=== PATIENT | female | born 1985 | race Caucasian/White ===

== ENCOUNTER 2016-09-22 14:15 | Emergency (ER) | payer BC ==
[2016-09-22 15:12] VITALS: BP 115/82
[2016-09-22] MEDS ORDERED: Fluorescein Sodium TOPICAL* 1 MG TEST ONE (15:23)
[2016-09-22] MEDS ORDERED: BSS OPTH.SOL* BTL ONE (15:24)
--- NOTE | 2016-09-22 15:32 | UC ---
Eye Complaint HPI - HPI Summary HPI Summary: Woke with L eye itchy and red. Used new mascara and makeup remover yesterday, had eyelash in L eye afterward which she had to remove. Denies FB sensation or photophobia. Has young children ages 1-11 at home. - History of Current Complaint Chief Complaint: UC Stated Complaint: RED DRY EYE Time Seen by Provider: 09/22/16 15:12 Hx Obtained From: Patient Hx Last Menstrual Period: current ?: No Onset/Duration: Sudden Onset Timing: Constant Severity Initially: Mild Severity Currently: Mild Location of Injury: Conjunctiva Character: Dull Alleviating Factor(s): Nothing Associated Signs And Symptoms: Positive: Negative - Risk Factors Penetrating Injury Risk Factor: Negative Globe Rupture Risk Factors: Negative - Allergies/Home Medications Allergies/Adverse Reactions: Allergies Allergy/AdvReac Type Severity Reaction Status Date / Time Amoxicillin Allergy Severe Hives Verified 09/22/16 15:03 Dominguez Allergy Severe THROAT Verified 09/22/16 15:03 SWELLING Codeine Allergy Severe Rash Verified 09/22/16 15:03 Erythromycin Allergy Severe Rash Verified 09/22/16 15:03 Latex Allergy Severe Rash Verified 09/22/16 15:03 Red Dye Allergy Severe Rash Verified 09/22/16 15:03 Sulfa Drugs Allergy Severe VOMITING, Verified 09/22/16 15:03 RASH ARTIFICIAL STRAWBERRY Allergy Severe Rash Uncoded 09/22/16 15:03 Home Medications: Home Medications Hydroxychloroquine TAB* [Plaquenil TAB*] 200 mg PO DAILY 09/22/16 [History Confirmed 09/22/16] PMH/Surg Hx/FS Hx/Imm Hx Previously Healthy: Yes Endocrine History Of: Denies: Diabetes, Thyroid Disease Cardiovascular History Of: Denies: Cardiac Disorders, Hypertension Respiratory History Of: Denies: COPD, Asthma GI/ History Of: Denies: Ulcer - Surgical History Surgical History: Yes Surgery Procedure, Year, and Place: OVARIAN CYSTS REMOVED X2 - Family History Known Family History: Positive: Hypertension - Social History Occupation: Employed Full-time Lives: With Family Alcohol Use: Rare Substance Use Type: None Smoking Status (MU): Never Smoked Tobacco - Immunization History Most Recent Influenza Vaccination: none Review of Systems Constitutional: Negative Skin: Negative Eyes: Eye Redness ENT: Negative Respiratory: Negative Cardiovascular: Negative Gastrointestinal: Negative Genitourinary: Negative Motor: Negative Neurovascular: Negative Musculoskeletal: Negative Neurological: Negative Psychological: Negative All Other Systems Reviewed And Are Negative: Yes Physical Exam Triage Information Reviewed: Yes Appearance: Well-Appearing, No Pain Distress, Well-Nourished Vital Signs: Initial Vital Signs Temp 98.0 F 09/22/16 15:05 Pulse 90 09/22/16 15:05 Resp 16 09/22/16 15:05 BP 115/82 09/22/16 15:05 Pulse Ox 97 09/22/16 15:05 Eye Exam: Other - PERRL Eyes: Positive: Conjunctiva Inflamed - L, Other: - Fluorescein dye test negative for uptake ENT Exam: Normal ENT: Positive: Normal ENT inspection, Hearing grossly normal, Pharynx normal, TMs normal Dental Exam: Normal Neck exam: Normal Neck: Positive: Supple, Nontender, No Lymphadenopathy Respiratory Exam: Normal Respiratory: Positive: Chest non-tender, Lungs clear, Normal breath sounds, No respiratory distress, No accessory muscle use Cardiovascular Exam: Normal Cardiovascular: Positive: RRR, No Murmur Musculoskeletal Exam: Normal Neurological Exam: Normal Psychological Exam: Normal Skin Exam: Normal Eye Complaint Course/Dx - Differential Dx/Diagnosis Provider Diagnoses: L eye conjunctivitis Discharge - Discharge Plan Condition: Stable Disposition: HOME Prescriptions: Ciprofloxacin 0.3% OPTH.SILKE* [Cipro 0.3% Opth*] 2 drop LEFT EYE QID #5 ml Patient Education Materials: Conjunctivitis (ED) Referrals: Heather BARNARD,Paul Singer [Primary Care Provider] - If Needed Additional Instructions: Use the drops until your itching and redness resolve for 48 hours.
== END 2016-09-22 15:32 | disposition home or self-care (01) ==
LOC: UCEAST 14:15
DX: H10.32 Unspecified acute conjunctivitis, left eye (principal); Z88.1 Allergy status to other antibiotic agents; Z88.5 Allergy status to narcotic agent; Z88.0 Allergy status to penicillin; Z88.2 Allergy status to sulfonamides
CPT/HCPCS: 99212; A9270-GY; G0463

== ENCOUNTER 2017-06-29 12:03 | Emergency (ER) | payer BC ==
[2017-06-29 12:10] VITALS: BP 124/73
--- NOTE | 2017-06-29 12:59 | UC ---
UC General HPI - HPI Summary HPI Summary: PT WITH H/O LUPUS NOT CURRENTLY ON ANY MEDICATION PRESENTS WITH SEVERAL DAYS OF JOINT SWELLING, PAIN AND RED ITCHY RASH. ALSO HAS A COUGH AND CONGESTION. WAS SEEN BY PCP AT [facility] YESTERDAY AND DX WITH SINUSITIS. RX FOR DOXY BUT PT HAS YET TO PICK THIS UP. HAD A TICK BITE 6 WEEKS AGO MID ABDOMEN. DESCRIBES A MALAR RASH THAT SHE HAD A FEW DAYS AGO THAT IS NOW RESOLVED. - History of Current Complaint Chief Complaint: UCRash Stated Complaint: SKIN Time Seen by Provider: 06/29/17 12:28 Hx Obtained From: Patient Hx Last Menstrual Period: current Onset/Duration: Gradual Onset, Lasting Days, Still Present Timing: Constant Onset Severity: Moderate Current Severity: Moderate - Allergy/Home Medications Allergies/Adverse Reactions: Allergies Allergy/AdvReac Type Severity Reaction Status Date / Time Amoxicillin Allergy Severe Hives Verified 06/29/17 12:11 Dominguez Allergy Severe THROAT Verified 06/29/17 12:11 SWELLING Codeine Allergy Severe Rash Verified 06/29/17 12:11 Erythromycin Allergy Severe Rash Verified 06/29/17 12:11 Latex Allergy Severe Rash Verified 06/29/17 12:11 Red Dye Allergy Severe Rash Verified 06/29/17 12:11 Sulfa Drugs Allergy Severe VOMITING, Verified 06/29/17 12:11 RASH ARTIFICIAL STRAWBERRY Allergy Severe Rash Uncoded 06/29/17 12:11 Home Medications: Home Medications Diphenhydramine HCl [Benadryl Allergy 25 MG CAP] 25 mg PO 06/29/17 [History] PMH/Surg Hx/FS Hx/Imm Hx - Additional Past Medical History Additional PMH: LUPUS - Surgical History Surgical History: Yes Surgery Procedure, Year, and Place: OVARIAN CYSTS REMOVED X2 - Family History Known Family History: Positive: Hypertension Family History: RHEUMATOID ARTHRITIS - Social History Alcohol Use: Rare Substance Use Type: None Smoking Status (MU): Never Smoked Tobacco - Immunization History Most Recent Influenza Vaccination: none Review of Systems Constitutional: Fatigue Skin: Rash Respiratory: Negative Cardiovascular: Negative Gastrointestinal: Negative Musculoskeletal: Arthralgia, Edema, Myalgia All Other Systems Reviewed And Are Negative: Yes Physical Exam Triage Information Reviewed: Yes Appearance: No Pain Distress - MOD, Well-Nourished Vital Signs: Initial Vital Signs Temp 98.9 F 06/29/17 12:06 Pulse 82 06/29/17 12:06 Resp 18 12/05/17 12:06 BP 124/73 06/29/17 12:06 Pulse Ox 100 06/29/17 12:06 Vital Signs Reviewed: Yes Eyes: Positive: Conjunctiva Clear ENT: Positive: Hearing grossly normal Neck: Positive: Supple, Nontender, No Lymphadenopathy Respiratory Exam: Normal Cardiovascular Exam: Normal Abdomen Description: Positive: Soft Musculoskeletal: Positive: ROM Intact, Edema @ - HANDS, FEET MILDLY SWOLLEN, Other: - TTP SMALL JOINTS OF HANDS Neurological: Positive: Alert Psychological: Positive: Age Appropriate Behavior Skin: Positive: rashes - SCATTERED EYRTHEMATOUS MACULAR RASH OVER TRUNK, ARMS, NECK. SOME LESIONS HAVE ANNULARITY. TICK BITE SITE MID ABDOMEN HEALED WELL. Course/Dx - Course Course Of Treatment: WILL TREAT WITH PREDNISONE. SX MAY BE DUE TO FLARE OF LUPUS. PT IS NOT CURRENTLY ON ANY MEDICATION. ADVISED CLOSE FOLLOW-UP WITH HER DIRECTOR OF ENTERPRISE APPLICATIONS. TO ER IF SX WORSEN. - Differential Dx - Multi-Symptom Provider Diagnoses: LUPUS FLARE Discharge - Discharge Plan Condition: Stable Disposition: HOME Prescriptions: predniSONE TAB* [Deltasone TAB*] 50 mg PO DAILY #7 tab Patient Education Materials: Autoimmune Disease (ED) Forms: *Work Release Referrals: Renan BARNARD,Nasim Centeno [Medical Doctor] - As Soon As Possible Heather BARNARD,Paul Singer [Primary Care Provider] - If Needed Additional Instructions: YOUR SYMPTOMS MAY BE RELATED TO A FLARE OF YOUR LUPUS. WILL TREAT WITH PREDNISONE. CALL YOUR DIRECTOR OF ENTERPRISE APPLICATIONS AT [facility] FOR AN APPOINTMENT ADRIANO. GO TO THE ER WITHOUT FAIL IF YOUR SYMPTOMS WORSEN
== END 2017-06-29 13:15 | disposition home or self-care (01) ==
LOC: UCEAST 12:03
DX: M32.9 Systemic lupus erythematosus, unspecified (principal)
CPT/HCPCS: 99212; G0463

== ENCOUNTER 2019-05-02 11:30 | Emergency (ER) | payer BC ==
[2019-05-02 13:07] LABS: ABS Lymphocytes 1.2 10^3/ul (1.0-4.8); ABS Monocytes 0.5 10^3/ul (0-0.8); ABS Neutrophils 5.8 10^3/ul (1.5-7.7); Eosinophil % 0.3 %; Hematocrit 41 % (35-47); Hemoglobin 13.8 g/dL (12.0-16.0); Lymphocyte % 16.4 %; Mean Corpuscular HGB Conc 34 g/dL (31-36); Mean Corpuscular Hemoglobin 30 pg (27-31); Mean Corpuscular Volume 88 fL (80-97); Mean Platelet Volume 8.9 fL (7.4-10.4); Nucleated Red Blood Cells % 0.1; Platelet Count 210 10^3/uL (150-450); Red Blood Count 4.69 10^6 /uL (3.70-4.87); Red Cell Distribution Width 14 % (10-15); White Blood Count 7.6 10^3/uL (3.5-10.8)
[2019-05-02 13:35] LABS: HCG Pregnancy < 0.60 mIU/mL
[2019-05-02 13:37] LABS: ALT 10 U/L (7-52); AST 14 U/L (13-39); Albumin 4.4 g/dL (3.2-5.2); Albumin/Globulin Ratio 1.6 (1-3); Alkaline Phosphatase 47 U/L (34-104); Anion Gap 7 mmol/L (2-11); BUN/Creatinine Ratio 16.7 (8-20); Blood Urea Nitrogen 10 mg/dL (6-24); CO2 Carbon Dioxide 24 mmol/L (22-32); Calcium 9.4 mg/dL (8.6-10.3); Chloride 105 mmol/L (101-111); EGFR African American 138.5 (>60); EGFR Non-African American 114.4 (>60); Globulin 2.7 g/dL (2-4); Glucose 109 mg/dL (70-100); Potassium 3.9 mmol/L (3.5-5.0); Sodium 136 mmol/L (135-145); Total Protein 7.1 g/dL (6.4-8.9)
[2019-05-02 15:04] VITALS: BP 118/65
--- NOTE | 2019-05-03 06:59 | ED ---
Syncope/Near Syncope - HPI Summary HPI Summary: Pt. is a 34 y.o female who presents to the ER for evaluation after a near syncopal episode. Pt. works at an out pt. clinic with [employer] and was sitting with coworkers when she started to feel dizzy, lightheaded, and diaphoretic. Pt. notes that she did not eat today yet. Pt. states coworkers gave her sugary and salty foods and she felt slightly better. Pt. notes sxs are improving in the ED. Pt. denies CP, SOB, fever, cough, abd. pain, V./D, or urinary sxs. Pt. notes she has been feeling fatigued as well. Pt. notes numerous family members have been sick recently. Sxs are moderate in severity. No current modifying factors. - History Of Current Complaint Chief Complaint: EDWeakness Time Seen by Provider: 05/02/19 12:21 Hx Obtained From: Patient - Allergies/Home Medications Allergies/Adverse Reactions: Allergies Allergy/AdvReac Type Severity Reaction Status Date / Time MS Amoxicillin [Amoxicillin] Allergy Severe Hives Verified 05/02/19 13:16 MS Dominguez [Dominguez] Allergy Severe THROAT Verified 05/02/19 13:16 SWELLING MS Codeine [Codeine] Allergy Severe Rash Verified 05/02/19 13:16 MS Erythromycin Allergy Severe Rash Verified 05/02/19 13:16 [Erythromycin] MS Latex [Latex] Allergy Severe Rash Verified 05/02/19 13:16 MS Red Dye [Red Dye] Allergy Severe Rash Verified 05/02/19 13:16 MS Sulfa Drugs [Sulfa Drugs] Allergy Severe VOMITING, Verified 05/02/19 13:16 RASH ARTIFICIAL STRAWBERRY Allergy Severe Rash Uncoded 05/02/19 12:36 Home Medications: Home Medications NK [No Home Medications Reported] 05/02/19 [History Confirmed 05/02/19] PMH/Surg Hx/FS Hx/Imm Hx Previously Healthy: Yes Endocrine/Hematology History: Denies: Hx Diabetes, Hx Thyroid Disease Cardiovascular History: Denies: Hx Hypertension Respiratory History: Denies: Hx Asthma, Hx Chronic Obstructive Pulmonary Disease (COPD) GI History: Denies: Hx Ulcer - Surgical History Surgery Procedure, Year, and Place: OVARIAN CYSTS REMOVED X2 Infectious Disease History: No Infectious Disease History: Denies: Hx Clostridium Difficile, Hx Hepatitis, Hx Human Immunodeficiency Virus (HIV), Hx of Known/Suspected MRSA, Hx Shingles, Hx Tuberculosis, Hx Known/ Suspected VRE, Hx Known/Suspected VRSA, History Other Infectious Disease, Traveled Outside the [place] in Last 30 Days - Family History Known Family History: Positive: Hypertension, Non-Contributory Family History: RHEUMATOID ARTHRITIS - Social History Occupation: Employed Full-time Lives: With Family Alcohol Use: Rare Substance Use Type: Reports: None Smoking Status (MU): Never Smoked Tobacco Review of Systems Constitutional: Negative Negative: Fever, Chills Eyes: Negative ENT: Negative Cardiovascular: Negative Respiratory: Negative Gastrointestinal: Negative Genitourinary: Negative Musculoskeletal: Negative Skin: Negative Neurological: Negative All Other Systems Reviewed And Are Negative: Yes Physical Exam Vital Signs On Initial Exam: Initial Vitals Temp Pulse Resp BP Pulse Ox 97.3 F 78 14 146/92 98 05/02/19 11:31 05/02/19 11:31 05/02/19 11:31 05/02/19 11:31 05/02/19 11:31 Procedures - Sedation Patient Received Moderate/Deep Sedation with Procedure: No Diagnostics - Vital Signs Vital Signs Temp Pulse Resp BP Pulse Ox 05/02/19 15:00 98.3 F 70 18 118/65 98 05/02/19 13:32 67 128/91 05/02/19 11:31 97.3 F 78 14 146/92 98 - Laboratory Lab Results: Lab Results 05/02/19 05/02/19 05/02/19 Range/Units 11:33 12:47 12:47 WBC 7.6 (3.5-10.8) 10^3/uL RBC 4.69 (3.70-4.87) 10^6 /uL Hgb 13.8 (12.0-16.0) g/dL Hct 41 (35-47) % MCV 88 (80-97) fL MCH 30 (27-31) pg MCHC 34 (31-36) g/dL RDW 14 (10-15) % Plt Count 210 (150-450) 10^3/uL MPV 8.9 (7.4-10.4) fL Neut % (Auto) 76.8 % Lymph % (Auto) 16.4 % Morrill % (Auto) 6.1 % Eos % (Auto) 0.3 % Baso % (Auto) 0.4 % Absolute Neuts (auto) 5.8 (1.5-7.7) 10^3/ul Absolute Lymphs (auto) 1.2 (1.0-4.8) 10^3/ul Absolute Monos (auto) 0.5 (0-0.8) 10^3/ul Absolute Eos (auto) 0.0 (0-0.6) 10^3/ul Absolute Basos (auto) 0.0 (0-0.2) 10^3/ul Absolute Nucleated RBC 0.0 10^3/ul Nucleated RBC % 0.1 Sodium 136 (135-145) mmol/L Potassium 3.9 (3.5-5.0) mmol/L Chloride 105 (101-111) mmol/L Carbon Dioxide 24 (22-32) mmol/L Anion Gap 7 (2-11) mmol/L BUN 10 (6-24) mg/dL Creatinine 0.60 (0.51-0.95) mg/dL Est GFR ( Amer) 138.5 (>60) Est GFR (Non-Af Amer) 114.4 (>60) BUN/Creatinine Ratio 16.7 (8-20) Glucose 109 H (70-100) mg/dL POC Glucose (mg/dL) 90 (70-100) mg/dL Calcium 9.4 (8.6-10.3) mg/dL Total Bilirubin 0.50 (0.2-1.0) mg/dL AST 14 (13-39) U/L ALT 10 (7-52) U/L Alkaline Phosphatase 47 (34-104) U/L Troponin I 0.00 (<0.04) ng/mL Total Protein 7.1 (6.4-8.9) g/dL Albumin 4.4 (3.2-5.2) g/dL Globulin 2.7 (2-4) g/dL Albumin/Globulin Ratio 1.6 (1-3) Beta HCG, Quant < 0.60 mIU/mL Result Diagrams: 05/02/19 12:47 05/02/19 12:47 Lab Statement: Any lab studies that have been ordered have been reviewed, and results considered in the medical decision making process. Course/Dx Course Of Treatment: Pt. presenting for what sounds like a near syncopal event. She is afebrile and well appearing. BP slightly elevated. ECG done at 1306 shows a sinus rhythm of 64bpm, normal axis, no ST elevation or depression. Labs unremarkable. Pt. declined food or drink in the ED. Normal orthostatic VS. On re exam pt. feeling better. Advised to increase fluids and rest. Advised to eat when she leaves ER. To f.u with pcp within one week and retrned to ED is sxs change or worsen. Pt. understands and agrees with plan. - Diagnoses Differential Diagnosis/HQI/PQRI: Positive: Ectopic , Hypovolemia, Metabolic Reaction, Seizure, Vasovagal Episode Provider Diagnoses: Near syncope Discharge ED - Sign-Out/Discharge Documenting (check all that apply): Patient Departure - Discharge Plan Condition: Improved Disposition: HOME Patient Education Materials: Near Syncope (ED) Forms: *Work Release Referrals: Edda Gonzalez MD [Primary Care Provider] - Additional Instructions: Schedule a follow up appointment with your PCP in 2-3 days Increase fluids and rest Please eat a meal when you leave the ER Change positions slowly Return to ER if symptoms change or worsen - Billing Disposition and Condition Condition: IMPROVED Disposition: Home
== END 2019-05-02 15:00 | disposition home or self-care (01) ==
LOC: ED 11:30
DX: R55 Syncope and collapse (principal); Z88.5 Allergy status to narcotic agent; Z88.0 Allergy status to penicillin; Z88.2 Allergy status to sulfonamides; Z88.8 Allergy status to other drugs, medicaments and biological substances; Z88.1 Allergy status to other antibiotic agents; Z91.040 Latex allergy status
CPT/HCPCS: 36415; 80053; 84484; 84702; 85025; 93005; 99282

== ENCOUNTER 2019-10-13 15:58 | Emergency (ER) | payer SELFPAY ==
--- NOTE | 2019-10-13 16:15 | ED ---
Medical Screening - HPI Summary HPI Summary: 34 [facility]. Patient is an employee at the [employer]. She was working with a disabled patient who did a raspberry spit in her face. Patient felt droplet fall on to her left cheek. She washed her face with soap and water after. She did not feel any fluid or blood go into her eyes or mouth. Hydroxychloroquine TAB* [Plaquenil TAB*] 200 mg PO DAILY PRN 10/13/19 [History Confirmed 10/13/19] - History of Current Complaint Chief Complaint: EDExposureBodyFluid Stated Complaint: EXPOSURE PER PT Time Seen by Provider: 10/13/19 16:14 Onset/Duration: Resolved PMH/Surg Hx/FS Hx/Imm Hx Endocrine/Hematology History: Denies: Hx Diabetes, Hx Thyroid Disease Cardiovascular History: Denies: Hx Hypertension Respiratory History: Denies: Hx Asthma, Hx Chronic Obstructive Pulmonary Disease (COPD) GI History: Denies: Hx Ulcer Musculoskeletal History: Denies: Hx Rheumatoid Arthritis - Surgical History Surgery Procedure, Year, and Place: OVARIAN CYSTS REMOVED X2 Infectious Disease History: No Infectious Disease History: Denies: Hx Clostridium Difficile, Hx Hepatitis, Hx Human Immunodeficiency Virus (HIV), Hx of Known/Suspected MRSA, Hx Shingles, Hx Tuberculosis, Hx Known/ Suspected VRE, Hx Known/Suspected VRSA, History Other Infectious Disease, Traveled Outside the [place] in Last 30 Days - Family History Known Family History: Positive: Hypertension Family History: RHEUMATOID ARTHRITIS - Social History Alcohol Use: Rare Substance Use Type: Reports: None Hx Tobacco Use: No Smoking Status (MU): Never Smoked Tobacco Review of Systems Negative: Fever Positive: Other - body fluid exposure All Other Systems Reviewed And Are Negative: Yes Physical Exam - Summary Physical Exam Summary: General: Well appearing, no distress HEENT: PERRL Cardiovascular: Skin is well perfused Pulmonary: No respiratory distress, no tachypnea Abdomen: Non-distended Skin: Warm, pink, dry MSK: No edema Psych: Normal affect Neuro: A&Ox3 Triage Information Reviewed: Yes Vital Signs On Initial Exam: Initial Vitals Temp Pulse Resp BP Pulse Ox 97.8 F 85 15 147/91 98 10/13/19 16:01 10/13/19 16:01 10/13/19 16:01 10/13/19 16:01 10/13/19 16:01 Vital Signs Reviewed: Yes Procedures - Sedation Patient Received Moderate/Deep Sedation with Procedure: No Diagnostics - Vital Signs Vital Signs Temp Pulse Resp BP Pulse Ox 10/13/19 16:01 97.8 F 85 15 147/91 98 - Laboratory Lab Statement: Any lab studies that have been ordered have been reviewed, and results considered in the medical decision making process. Course/Dx - Course Course Of Treatment: 34 y/o F p/w concern for body fluid exposure. Patient did not have any exposures that warrant further workup. Medical screening exam performed, no emergent conditions. - Diagnoses Provider Diagnoses: Patient exposure to body fluids Discharge ED - Sign-Out/Discharge Documenting (check all that apply): Patient Departure - Discharge Plan Condition: Stable Disposition: HOME Patient Education Materials: Body Substance Exposure (ED) Referrals: Edda Gonzalez MD [Medical Doctor] - Additional Instructions: You were seen in the emergency department for body fluid exposure. You do not require further testing at this time. It was a pleasure taking care of you today. - Billing Disposition and Condition Condition: STABLE Disposition: Home - Attestation Statements Document Initiated by Scribe: Yes Documenting Scribe: Mariam Loyd Provider For Whom Scribe is Documenting (Include Credential): Eva Gloria MD Scribe Attestation: IMariam, scribed for Eva Gloria MD on 10/13/19 at 1637. Scribe Documentation Reviewed: Yes Provider Attestation: The documentation as recorded by the scribeMariam accurately reflects the service I personally performed and the decisions made by , Eva Gloria MD Status of Scribe Document: Viewed
[2019-10-13 16:45] VITALS: BP 131/96
== END 2019-10-13 16:45 | disposition home or self-care (01) ==
LOC: ED 15:58
DX: Z77.21 Contact with and (suspected) exposure to potentially hazardous body fluids (principal); Z79.899 Other long term (current) drug therapy
CPT/HCPCS: 99282